=== PATIENT | female | born 1995 ===

== ENCOUNTER 2016-07-31 07:17 | Day surgery (SDC) | payer MEDICAID ==
[2016-07-31 08:09] VITALS: BMI 35.7
[2016-07-31] MEDS ORDERED: Lactated Ringer's 500 ML IV ONE ×2 (09:35)
[2016-07-31] MEDS ORDERED: Propofol 10 mg/ml Inj (20 ML) ONE (09:46)
[2016-07-31] MEDS ORDERED: Lidocaine Hydrochloride 5 ML INJ ONE (10:13)
[2016-07-31] MEDS ORDERED: Albuterol-Ipratrop 3 mg / 0.5 (3 ml) UD INH STA (10:16)
[2016-07-31 11:04] VITALS: O2SAT 99
[2016-07-31 12:25] VITALS: RESP 18
[2016-07-31 12:29] VITALS: BP 131/67; PULSE 66; TEMP 97.4
== END 2016-07-31 12:18 | disposition home or self-care (01) ==
LOC: C.ENDO 07:17
PROVIDERS: ATTEND Internal Medicine
DX: K29.50 Unspecified chronic gastritis without bleeding (principal); G43.A0 Cyclical vomiting, in migraine, not intractable
CPT/HCPCS: 43239; 84703; 88305; 88342; J2704; J3010; J7120

== ENCOUNTER 2017-02-26 08:32 | Emergency (ER) | payer MEDICAID ==
[2017-02-26 08:41] VITALS: BMI 34.1
[2017-02-26 08:45] VITALS: BP 130/82; PULSE 68; RESP 18; TEMP 98.4; O2SAT 99
[2017-02-26 09:47] LABS: RBC URINE 2 /hpf (0-3); URINE BACTERIA RARE (<OCC); URINE BILIRUBIN NEGATIVE (NEGATIVE); URINE BLOOD 2+ (NEGATIVE); URINE COLOR Yellow (YELLOW); URINE GLUCOSE (UA) NORMAL (Normal); URINE KETONE NEGATIVE (NEGATIVE); URINE LEUKOCYTE ESTERASE TRACE Leu/uL (Negative); URINE PROTEIN NEGATIVE (NEGATIVE); URINE UROBILINOGEN NORMAL mg/dL (0.2-1.0); WBC URINE 19 /hpf (0-5)
--- NOTE | 2017-02-26 10:02 | C.PDOC ---
History Of Present Illness Pt c/o vaginal itching/burning with white discharge. 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 Time Seen by Provider: 02/26/17 09:07 Chief Complaint (Nursing): Female Genitourinary History Per: Patient Onset/Duration Of Symptoms: Days (3) Current Symptoms Are (Timing): Still Present Severity: Moderate Quality Of Discomfort: Burning, Other (itching) Associated Symptoms: Urinary Symptoms Alleviating Factors: None Additional History Per: Prior Records Past Medical History Reviewed: Historical Data, Nursing Documentation, Vital Signs Vital Signs: Last Vital Signs Temp 98.4 F 02/26/17 08:41 Pulse 68 02/26/17 08:41 Resp 18 02/26/17 08:41 BP 130/82 02/26/17 08:41 Pulse Ox 99 02/26/17 08:41 - Medical History PMH: Migraine Surgical History: Endoscopy (08/2015) Family History: States: Unknown Family Hx - Social History Hx Tobacco Use: No Hx Alcohol Use: No Hx Substance Use: No - Immunization History Hx Tetanus Toxoid Vaccination: No Hx Influenza Vaccination: No Hx Pneumococcal Vaccination: No Review Of Systems Except As Marked, All Systems Reviewed And Found Negative. Constitutional: Negative for: Fever, Weakness Cardiovascular: Negative for: Chest Pain Respiratory: Negative for: Shortness of Breath Gastrointestinal: Negative for: Vomiting, Abdominal Pain, Diarrhea Genitourinary: Positive for: Dysuria, Vaginal Discharge. Negative for: Pelvic Pain Musculoskeletal: Negative for: Neck Pain, Back Pain Skin: Negative for: Rash Neurological: Negative for: Weakness, Numbness Physical Exam - Physical Exam Appears: Non-toxic, No Acute Distress Skin: Normal Color, Warm, Dry, No Rash Head: Atraumatic, Normacephalic Eye(s): bilateral: PERRL, EOMI Neck: Normal ROM, Supple Cardiovascular: Rhythm Regular Respiratory: Normal Breath Sounds, No Accessory Muscle Use Gastrointestinal/Abdominal: Soft, No Tenderness Back: No CVA Tenderness Pelvic: Normal Bimanual Exam, No Vaginal Bleeding, Vaginal Discharge (white, looks like bernie), No Cervical Motion Tenderness, No Cervix Open, No Adnexal Tenderness, No Tender Uterus Extremity: Normal ROM Neurological/Psych: Oriented x3, Normal Motor, Normal Sensation ED Course And Treatment - Laboratory Results Urine POC: Negative O2 Sat by Pulse Oximetry: 99 Pulse Ox Interpretation: Normal Disposition Counseled Patient/Family Regarding: Studies Performed, Diagnosis, Need For Followup, Rx Given - Disposition Disposition: HOME/ ROUTINE Disposition Time: 10:03 Condition: IMPROVED Additional Instructions: Follow up with your Curriculum Director within 1 week. Return to the ER if you develop fever, vomiting, abdominal pain, worsening of symptoms or if you have any other concerns. Instructions: Vulvovaginal Candidiasis (ED) - Clinical Impression Clinical Impression: Vaginal candidiasis
== END 2017-02-26 10:00 | disposition home or self-care (01) ==
LOC: C.ER 08:32
DX: B37.3 Candidiasis of vulva and vagina (principal)

== ENCOUNTER 2017-06-21 19:35 | Emergency (ER) | payer MEDICAID, OTHER ==
[2017-06-21 19:35] VITALS: BMI 34.1
[2017-06-21 19:52] VITALS: BP 121/70; PULSE 72; RESP 20; TEMP 98.4; O2SAT 100
[2017-06-21] MEDS ORDERED: Tetracaine 0.5% Ophth 2 ML BOTTLE OS ONE (20:35)
[2017-06-21] MEDS ORDERED: Fluorescein 1 mg Ophthalmic Strip OS ONE (20:36)
[2017-06-21] MEDS ORDERED: Erythromycin 0.5% Ophth Oint 1 APPLIC/3.5 G OS STA (21:03)
[2017-06-21] MEDS ORDERED: Erythromycin 0.5% Ophth Oint 1 APPLIC/3.5 G ONE (21:08)
--- NOTE | 2017-06-21 21:18 | C.PDOC ---
History Of Present Illness 25 year old female presents to the ER with a complaint of sudden onset of pain to the left eye, associated with a headache. Patient feels like the pain might have triggered her migraine. Denies nausea, change in vision, discharge, vomiting, injury, or contact lens use. Time Seen by Provider: 06/21/17 19:59 Chief Complaint (Nursing): Eye Problem History Per: Patient History/Exam Limitations: no limitations Onset/Duration Of Symptoms: Hrs Current Symptoms Are (Timing): Still Present Injury To Eye?: No Quality: Sharp Wears Contact Lens?: No Associated Symptoms: Pain. denies: Decreased Vision, Swelling, Itching, Discharge From Eye Recent travel outside of the [place]: No Past Medical History Reviewed: Historical Data, Nursing Documentation, Vital Signs Vital Signs: Last Vital Signs Temp 98.4 F 06/21/17 19:44 Pulse 72 06/21/17 19:44 Resp 20 06/21/17 21:39 BP 121/70 06/21/17 19:44 Pulse Ox 100 06/21/17 23:28 - Medical History PMH: Migraine Surgical History: Endoscopy (08/2015) Family History: States: Unknown Family Hx - Social History Hx Tobacco Use: No Hx Alcohol Use: No Hx Substance Use: No - Immunization History Hx Tetanus Toxoid Vaccination: No Hx Influenza Vaccination: No Hx Pneumococcal Vaccination: No Review Of Systems Constitutional: Negative for: Fever, Chills Eyes: Positive for: Pain (Left). Negative for: Vision Change ENT: Negative for: Ear Pain, Nose Pain Gastrointestinal: Negative for: Nausea, Vomiting Skin: Negative for: Rash Neurological: Positive for: Headache. Negative for: Weakness, Numbness Physical Exam - Physical Exam Appears: Non-toxic Skin: Normal Color, Warm, Dry, No Rash Head: Atraumatic, Normacephalic, Other (No temporal artery tenderness) Eye(s): bilateral: PERRL, EOMI, right: Normal Inspection, left: Other (Mild conjunctival injection, no foreign body with lid inversion) Nose: Normal Oral Mucosa: Moist Neck: Normal ROM Extremity: Normal ROM Neurological/Psych: Oriented x3, Normal Speech Gait: Steady ED Course And Treatment O2 Sat by Pulse Oximetry: 100 (Room air) Pulse Ox Interpretation: Normal Medical Decision Making Medical Decision Making: Tetracaine and fluorescein applied with uptake at 3'o clock. On re-exam, the patient reports improvement of symptoms, Lungs are CTA, heart is RRR, abdomen is soft, non-tender and the patient is tolerating PO well. Ambulatory in the ED with steady gait. Disposition - Disposition Referrals: Misty Kahn MD [Medical Doctor] - Howie Dozier MD [Staff Provider] - Disposition: HOME/ ROUTINE Disposition Time: 21:19 Condition: STABLE Additional Instructions: Follow up with the medical doctor within 1-2 days. Return if worsened. Prescriptions: Naproxen [Naprosyn] 500 mg PO BID #20 tab Tobramycin [Tobrex] 5 ml OS TID #1 bot Instructions: Corneal Abrasion (DC), Headache, Adult (DC) Forms: [facility] (Serbian), Work Excuse - Clinical Impression Clinical Impression: Corneal abrasion, Headache - PA / [employer] CHIEF / Resident Statement MD/DO has reviewed & agrees with the documentation as recorded. - Scribe Statement The provider has reviewed the documentation as recorded by the Scribe Howie Serra All medical record entries made by the Adielibsilvano were at my direction and personally dictated by me. I have reviewed the chart and agree that the record accurately reflects my personal performance of the history, physical exam, medical decision making, and the department course for this patient. I have also personally directed, reviewed, and agree with the discharge instructions and disposition.
== END 2017-06-21 21:39 | disposition home or self-care (01) ==
LOC: C.ER 19:35
DX: S05.02XA Injury of conjunctiva and corneal abrasion without foreign body, left eye, initial encounter (principal); X58.XXXA Exposure to other specified factors, initial encounter; R51 Headache